=== PATIENT | female | born 1970 | race Caucasian/White ===

== ENCOUNTER 2018-02-17 07:51 | Emergency (ER) | payer OTHER ==
[~2018-02-17] VITALS: Ht 157.5 cm; Wt 78.1 kg
[~2018-02-17 07:51] MED LIST: Advil Migraine PO; ECHINACEA350 MG PO; Medrol Dosepak PO; NORCO 5/3251 TABLET PO; TYLENOL EXTRA500 MG PO; ZANTAC150 MG PO; ZANTAC300 MG PO; ZANTAC75 M2 PO; Zithromax PO
[2018-02-17 08:25] LABS: HEMATOCRIT 38.6 % (36.0-46.0); HEMOGLOBIN 13.4 G/DL (11.9-15.5); MCH 30.5 PG (29.0-34.0); MCHC 34.7 G/DL (30.0-36.0); MCV 87.7 FL (83-99); PLATELET COUNT 319 K/uL (156-360); RBC DIS.WIDTH-CV 13.3 % (11.8-14.6); RBC DIS.WIDTH-SD 42.9 % (39-53); WHITE BLOOD COUNT 10.6 K/uL (4.1-10.2)
[2018-02-17 08:36] LABS: ALBUMIN 4.2 g/dL (3.2-4.8); CHLORIDE 109 mEq/L (99-109); POTASSIUM 3.8 mEq/L (3.7-5.4); SODIUM 140 mEq/L (136-147)
[2018-02-17 08:39] LABS: GLUCOSE 100 mg/dL (70-99); TOTAL PROTEIN 7.3 g/dL (6.4-8.3)
[2018-02-17 08:40] LABS: TOTAL BILIRUBIN 0.4 mg/dL (0.0-1.0)
[2018-02-17 08:42] LABS: ALKALINE PHOSPHATASE 77 IU/L (3-129); CREATININE 0.8 mg/dL (0.6-1.3); GFR ESTIMATE (CALCULATED) > 59 mL/min/
[2018-02-17 08:43] LABS: UREA NITROGEN (BUN) 13 mg/dL (9-23)
[2018-02-17 08:44] LABS: AST (GOT) 24 IU/L (2-34)
[2018-02-17 08:45] LABS: ALT (GPT) 10 IU/L (3-49)
[2018-02-17 08:51] LABS: QUANTITATIVE HCG < 4.0 MIU/ML
[2018-02-17 09:44] LABS: APPEARANCE CLEAR ((CLEAR)); BILIRUBIN NEGATIVE; BLOOD NEGATIVE; COLOR STRAW ((YELLOW)); GLUCOSE (STRIP) NEGATIVE; KETONES NEGATIVE; LEUKOCYTES NEGATIVE; NITRITE NEGATIVE; PROTEIN (STRIP) NEGATIVE; SPECIFIC GRAVITY 1.009 (1.000-1.030); UROBILINOGEN 0.2 MG/DL (0.2-1.0)
[2018-02-17] MEDS ORDERED: FLAGYL500 MG PO (10:01)
[2018-02-17] MEDS ORDERED: CIPRO500 MG PO (10:01)
[2018-02-17] MEDS ORDERED: ZOFRAN ODT4 MG PO (10:01)
[2018-02-17] MEDS ORDERED: BENTYL10 MG PO (10:01)
[2018-02-17 10:23] VITALS: BP 110/82
== END 2018-02-17 10:20 | disposition home or self-care (01) ==
LOC: EME 07:51
PROVIDERS: Nurse Practitioner Family
DX: K57.92 Diverticulitis of intestine, part unspecified, without perforation or abscess without bleeding (principal); R11.0 Nausea; K21.9 Gastro-esophageal reflux disease without esophagitis; Z87.891 Personal history of nicotine dependence; Z88.0 Allergy status to penicillin
CPT/HCPCS: 74177; 80053; 81003; 84702; 85027; 99281; 99284; J1885; J2405; J7030

== ENCOUNTER 2018-04-07 12:18 | Emergency (ER) | payer OTHER ==
[~2018-04-07] VITALS: Ht 160 cm; Wt 75.5 kg
[~2018-04-07 12:18] MED LIST changes: +BENTYL10 MG PO; +CIPRO500 MG PO; +FLAGYL500 MG PO; +ZOFRAN ODT4 MG PO
[2018-04-07 13:12] LABS: HEMOGLOBIN 13.8 G/DL (11.9-15.5); MCH 31.4 PG (29.0-34.0); MCHC 35.4 G/DL (30.0-36.0); MCV 88.8 FL (83-99); PLATELET COUNT 345 K/uL (156-360); RBC DIS.WIDTH-CV 13.2 % (11.8-14.6); RBC DIS.WIDTH-SD 43.6 % (39-53); RED BLOOD COUNT 4.39 M/uL (3.80-5.20); WHITE BLOOD COUNT 7.9 K/uL (4.1-10.2)
[2018-04-07 13:14] LABS: APPEARANCE SL.HAZY ((CLEAR)); BILIRUBIN NEGATIVE; BLOOD SMALL; COLOR YELLOW ((YELLOW)); GLUCOSE (STRIP) NEGATIVE; KETONES NEGATIVE; LEUKOCYTES NEGATIVE; NITRITE NEGATIVE; PROTEIN (STRIP) NEGATIVE; SPECIFIC GRAVITY 1.002 (1.000-1.030); UROBILINOGEN 0.2 MG/DL (0.2-1.0)
[2018-04-07 13:20] LABS: BACTERIA RARE /HPF; EPITHELIAL CELLS RARE /HPF; HYALINE CASTS 0-5 /LPF; MUCUS NONE SEEN /LPF; RED BLOOD CELLS 0-5 /HPF (0-5); UCUL ADDED? NO; WHITE BLOOD CELLS 0-5 /HPF (0-5)
[2018-04-07 13:21] LABS: ALBUMIN 4.5 g/dL (3.2-4.8); CHLORIDE 109 mEq/L (99-109); POTASSIUM 3.9 mEq/L (3.7-5.4); SODIUM 141 mEq/L (136-147)
[2018-04-07 13:23] LABS: GLUCOSE 95 mg/dL (70-99); TOTAL PROTEIN 7.6 g/dL (6.4-8.3)
[2018-04-07 13:25] LABS: TOTAL BILIRUBIN 0.3 mg/dL (0.0-1.0)
[2018-04-07 13:27] LABS: ALKALINE PHOSPHATASE 72 IU/L (3-129); CREATININE 0.8 mg/dL (0.6-1.3); GFR ESTIMATE (CALCULATED) > 59 mL/min/
[2018-04-07 13:28] LABS: UREA NITROGEN (BUN) 9 mg/dL (9-23)
[2018-04-07 13:29] LABS: AST (GOT) 25 IU/L (2-34)
[2018-04-07 13:30] LABS: ALT (GPT) 11 IU/L (3-49); LIPASE 40 U/L (1.0-51.0)
[2018-04-07] MEDS ORDERED: COLACE100 MG PO (14:10)
[2018-04-07] MEDS ORDERED: BENTYL10 MG PO (14:10)
[2018-04-07 14:33] VITALS: BP 132/78
== END 2018-04-07 14:33 | disposition home or self-care (01) ==
LOC: EME 12:18
PROVIDERS: Physician Assistant
DX: K59.00 Constipation, unspecified (principal); K57.30 Diverticulosis of large intestine without perforation or abscess without bleeding; K21.9 Gastro-esophageal reflux disease without esophagitis; Z87.891 Personal history of nicotine dependence; Z88.0 Allergy status to penicillin
CPT/HCPCS: 74177; 80053; 81003; 83690; 85027; 87040; 99281; 99283; J2405; J3010; J7030

== ENCOUNTER → 2018-05-06 | Outpatient (CLI) | payer OTHER ==
[~2018-05-06] MED LIST changes: +COLACE100 MG PO
== END | disposition home or self-care (01) ==
LOC: NUC 08:10
DX: R10.10 Upper abdominal pain, unspecified (principal)
CPT/HCPCS: 78264; A9541